=== PATIENT | female | born 1945 | race African-American/Black ===

== ENCOUNTER 2025-03-19 12:10 | Inpatient (IN) | payer MEDICARE ==
[~2025-03-19] VITALS: Ht 172.7 cm; Wt 78.6 kg
[~2025-03-19 12:10] MED LIST: AMLO5TAB5; ASPI-1406; ATEN50TA; CLOP-31; LISI1TAB13; SIMV-345
[2025-03-19 12:51] LABS: MEAN CORPUSCULAR HEMOGLOBIN 27.6 pg (28.0-32.0); MEAN CORPUSCULAR HGB CONC 32.5 g/dL (31.0-37.0); MEAN CORPUSCULAR VOLUME 85.1 fL (81.0-99.0); MEAN PLATELET VOLUME 8.8 fl (7.4-10.4); PLATELET 365 x1000/uL (130-400); RED BLOOD CELL COUNT 3.99 mill/uL (4.2-5.4); RED CELL DISTRIBUTION WIDTH 16.9 % (11.6-14.6)
[2025-03-19 12:59] LABS: CHLORIDE 111 mEq/L (98-107); POTASSIUM 3.4 mEq/L (3.5-5.1); SODIUM 146 mEq/L (136-145)
[2025-03-19 13:00] LABS: CALCIUM 10.3 mg/dL (8.7-10.4); CARBON DIOXIDE 17 mEq/L (21-32)
[2025-03-19 13:05] LABS: CREATININE 4.1 mg/dL (0.6-1.0); GLUCOSE 138 mg/dL (70-105); UREA NITROGEN BLOOD 69 mg/dL (9-23)
[2025-03-19 13:07] LABS: ALANINE AMINOTRANSFERASE 27 IU/L (10-49); ALBUMIN 5.1 g/dL (3.2-4.8); ASPARTATE AMINOTRANSFERASE 22 IU/L (<34); BILIRUBIN DIRECT 0.2 mg/dL (<=3.0); BILIRUBIN TOTAL 0.8 mg/dL (0.1-1.0); PROTEIN TOTAL 8.8 g/dL (6.0-8.3); TROPONIN I HIGH SENSITIVITY 23 ng/L (3.0-34)
[2025-03-19 13:15] LABS: DIFFERENTIAL COMMENT 1
[2025-03-19] MEDS: LACTATED RINGERS 1,000 ML IV SCH (13:20)
[2025-03-19 14:15] LABS: NUCLEATED RED BLOOD CELLS 7 /100 WBC
[2025-03-19 14:16] LABS: ANISOCYTOSIS 1+; PLATELET ESTIMATE NORMAL
[2025-03-19] MEDS ORDERED: ZOLPIDEM TARTRATE 5MG TABLET PO PRN (15:15)
[2025-03-19] MEDS ORDERED: HYDROCODONE/ACETAMINOPHEN 5/325MG TABLET PO PRN (15:15)
[2025-03-19] MEDS ORDERED: CLONIDINE 0.1MG TABLET PO PRN (15:15)
[2025-03-19] MEDS ORDERED: ACETAMINOPHEN 325MG TABLET PO PRN (15:15)
[2025-03-19 15:20] LABS: TROPONIN I HIGH SENSITIVITY 19 ng/L (3.0-34)
[2025-03-19] MEDS ORDERED: NALOXONE HCL 0.4MG/ML VIAL IV PRN (15:30)
[2025-03-19] MEDS: POTASSIUM CHLORIDE 20MEQ/PACKET PO NR (16:50)
[2025-03-19] MEDS: DEXT 5%/0.45% NACL 1000ML 1,000 ML IV SCH (16:50)
[2025-03-19] MEDS: ENOXAPARIN 30MG/0.3ML SYR SUBCUT SCH (16:51)
[2025-03-19] MEDS: ONDANSETRON HCL 4MG/2ML INJ IV PRN (16:54)
[2025-03-19 17:36] VITALS: BP 135/59; PULSE 70; RESP 16; TEMP 36.7; O2SAT 98
[2025-03-19] MEDS ORDERED: INFLUENZA VACCINE 05/PF 0.5 ML SYRINGE IM ONE (18:00)
[2025-03-19 20:00] VITALS: BP 126/61; PULSE 78; RESP 15; TEMP 36.8; O2SAT 94
[2025-03-19] MEDS: ATORVASTATIN CALCIUM 20MG TABLET PO SCH (21:14)
[2025-03-20] VITALS: BP 121/59; PULSE 77; RESP 15; TEMP 36.7; O2SAT 99
[2025-03-20 01:00] LABS: TROPONIN I HIGH SENSITIVITY 16 ng/L (3.0-34)
[2025-03-20 04:00] VITALS: BP 100/48; PULSE 65; RESP 24; TEMP 37; O2SAT 95
[2025-03-20 07:34] LABS: HEMATOCRIT. 31.4 % (36.0-48.0); HEMOGLOBIN. 10.3 g/dL (12.0-16.0); MEAN CORPUSCULAR HEMOGLOBIN 27.6 pg (28.0-32.0); MEAN CORPUSCULAR HGB CONC 32.9 g/dL (31.0-37.0); MEAN PLATELET VOLUME 8.6 fl (7.4-10.4); PLATELET 346 x1000/uL (130-400); RED BLOOD CELL COUNT 3.74 mill/uL (4.2-5.4); RED CELL DISTRIBUTION WIDTH 16.6 % (11.6-14.6); WHITE BLOOD COUNT 3.8 x1000/uL (4.5-11.0)
[2025-03-20 07:45] LABS: DIFFERENTIAL COMMENT 1
[2025-03-20 07:49] LABS: TROPONIN I HIGH SENSITIVITY 16 ng/L (3.0-34)
[2025-03-20 07:50] LABS: CARBON DIOXIDE 19 mEq/L (21-32); CHLORIDE 112 mEq/L (98-107); SODIUM 148 mEq/L (136-145)
[2025-03-20 07:51] LABS: CALCIUM 9.7 mg/dL (8.7-10.4)
[2025-03-20 07:56] LABS: CREATININE 3.6 mg/dL (0.6-1.0); GLUCOSE 136 mg/dL (70-105); UREA NITROGEN BLOOD 74 mg/dL (9-23)
[2025-03-20 07:58] LABS: PHOSPHORUS 5.4 mg/dL (2.5-4.9)
[2025-03-20 08:00] VITALS: BP 142/66; PULSE 82; RESP 16; TEMP 36.7; O2SAT 95
[2025-03-20 08:03] LABS: POTASSIUM 2.7 mEq/L (3.5-5.1)
[2025-03-20] MEDS ORDERED: POTASSIUM CHLORIDE 40 MEQ in DEXT 5% WATER 230 ML IV ONE (08:30)
[2025-03-20 08:54] LABS: NUCLEATED RED BLOOD CELLS 2 /100 WBC
[2025-03-20 08:55] LABS: ANISOCYTOSIS 1+; PLATELET ESTIMATE NORMAL
[2025-03-20] MEDS: PANTOPRAZOLE SODIUM 40 MG/VIAL IV SCH (09:11)
[2025-03-20] MEDS: ASPIRIN 81MG EC TABLET PO SCH (09:12)
[2025-03-20] MEDS: AMLODIPINE 10MG TABLET PO SCH (09:12)
[2025-03-20] MEDS: ATENOLOL 50 MG TABLET PO SCH (09:13)
[2025-03-20] MEDS: KCL 20MEQ/100ML PREMIX 100 ML IV NR (09:14)
[2025-03-20 12:00] VITALS: BP 118/56; PULSE 76; RESP 18; TEMP 36.7; O2SAT 100
[2025-03-20] MEDS: CLOPIDOGREL 75MG TABLET PO SCH (13:27)
[2025-03-20 16:00] VITALS: BP 127/55; PULSE 66; RESP 17; TEMP 36.8; O2SAT 98
[2025-03-20 17:08] LABS: POTASSIUM 3.4 mEq/L (3.5-5.1)
[2025-03-20 20:00] VITALS: BP 123/53; PULSE 60; RESP 15; TEMP 36.9; O2SAT 99
[2025-03-21] VITALS: BP 139/58; PULSE 67; RESP 15; TEMP 36.8; O2SAT 100
[2025-03-21 04:00] VITALS: BP 144/62; PULSE 60; RESP 14; TEMP 36.7; O2SAT 100
[2025-03-21 07:05] LABS: POTASSIUM 3.5 mEq/L (3.5-5.1)
[2025-03-21 07:07] LABS: CALCIUM 9.8 mg/dL (8.7-10.4)
[2025-03-21 07:16] LABS: BASOPHILS % 0.1 % (0.0-2.0); HEMATOCRIT. 33.9 % (36.0-48.0); HEMOGLOBIN. 10.9 g/dL (12.0-16.0); MEAN CORPUSCULAR HEMOGLOBIN 27.2 pg (28.0-32.0); MEAN CORPUSCULAR HGB CONC 32.1 g/dL (31.0-37.0); MEAN CORPUSCULAR VOLUME 84.6 fL (81.0-99.0); MEAN PLATELET VOLUME 8.8 fl (7.4-10.4); MONOCYTES % 11.6 % (2.0-8.0); NEUTROPHILS % 74.3 % (40.0-76.0); PLATELET 352 x1000/uL (130-400); RED BLOOD CELL COUNT 4.01 mill/uL (4.2-5.4); RED CELL DISTRIBUTION WIDTH 16.6 % (11.6-14.6); WHITE BLOOD COUNT 4.8 x1000/uL (4.5-11.0)
[2025-03-21 07:48] LABS: CREATININE 2.5 mg/dL (0.6-1.0)
[2025-03-21 08:00] VITALS: BP 135/59; PULSE 69; RESP 18; TEMP 36.6; O2SAT 97
[2025-03-21] MEDS: POTASSIUM CHLORIDE 20MEQ TABLET SR PO NR (08:43)
[2025-03-21] MEDS: DEXT 5% WATER 500 ML IV ONE (10:00)
[2025-03-21 12:00] VITALS: BP 126/55; PULSE 61; RESP 20; TEMP 36.6; O2SAT 100
[2025-03-21 16:00] VITALS: BP 134/47; PULSE 63; RESP 18; TEMP 36.8; O2SAT 94
[2025-03-21 20:00] VITALS: BP 101/50; PULSE 65; RESP 12; TEMP 36.7; O2SAT 95
[2025-03-22] VITALS: BP 119/42; PULSE 58; RESP 16; TEMP 36.9; O2SAT 100
[2025-03-22 04:00] VITALS: BP 129/53; PULSE 64; RESP 16; TEMP 36.8; O2SAT 98
[2025-03-22 07:27] LABS: EOSINOPHILS % 0.1 % (0.0-5.0); HEMATOCRIT. 35.1 % (36.0-48.0); HEMOGLOBIN. 11.3 g/dL (12.0-16.0); LYMPHOCYTES % 14.9 % (20.0-50.0); MEAN CORPUSCULAR HEMOGLOBIN 27.8 pg (28.0-32.0); MEAN CORPUSCULAR HGB CONC 32.2 g/dL (31.0-37.0); MEAN CORPUSCULAR VOLUME 86.3 fL (81.0-99.0); MEAN PLATELET VOLUME 9.1 fl (7.4-10.4); MONOCYTES % 11.3 % (2.0-8.0); NEUTROPHILS % 73.7 % (40.0-76.0); PLATELET 311 x1000/uL (130-400); RED BLOOD CELL COUNT 4.07 mill/uL (4.2-5.4); RED CELL DISTRIBUTION WIDTH 17.4 % (11.6-14.6); WHITE BLOOD COUNT 5.4 x1000/uL (4.5-11.0)
[2025-03-22 07:32] LABS: POTASSIUM 3.3 mEq/L (3.5-5.1)
[2025-03-22 07:33] LABS: CALCIUM 9.6 mg/dL (8.7-10.4)
[2025-03-22 08:00] VITALS: BP 93/78; PULSE 63; RESP 14; TEMP 36.6; O2SAT 95
[2025-03-22 12:00] VITALS: BP 128/44; PULSE 60; RESP 11; TEMP 36.2; O2SAT 100
[2025-03-22] MEDS: POTASSIUM CHLORIDE 20MEQ/PACKET PO NR (14:22)
[2025-03-22] MEDS: METOCLOPRAMIDE HCL 10MG/2ML VIAL IV SCH (14:23)
[2025-03-22 16:00] VITALS: BP 135/58; PULSE 67; RESP 14; TEMP 36.4; O2SAT 100
[2025-03-22 20:00] VITALS: BP 127/49; PULSE 60; RESP 13; TEMP 36.3; O2SAT 100
[2025-03-23] VITALS: BP 135/52; PULSE 59; RESP 14; TEMP 35.4; O2SAT 100
[2025-03-23 04:00] VITALS: BP 139/49; PULSE 76; RESP 15; TEMP 36.4; O2SAT 100
[2025-03-23 07:35] LABS: POTASSIUM 3.9 mEq/L (3.5-5.1)
[2025-03-23 07:36] LABS: CALCIUM 9.8 mg/dL (8.7-10.4)
[2025-03-23 07:40] LABS: CREATININE 1.9 mg/dL (0.6-1.0)
[2025-03-23 07:46] LABS: BASOPHILS % 0.2 % (0.0-2.0); HEMATOCRIT. 35.2 % (36.0-48.0); HEMOGLOBIN. 11.3 g/dL (12.0-16.0); LYMPHOCYTES % 12.2 % (20.0-50.0); MEAN CORPUSCULAR HEMOGLOBIN 27.7 pg (28.0-32.0); MEAN CORPUSCULAR HGB CONC 31.9 g/dL (31.0-37.0); MEAN CORPUSCULAR VOLUME 86.7 fL (81.0-99.0); MEAN PLATELET VOLUME 8.8 fl (7.4-10.4); MONOCYTES % 9.4 % (2.0-8.0); NEUTROPHILS % 78.2 % (40.0-76.0); PLATELET 329 x1000/uL (130-400); RED BLOOD CELL COUNT 4.07 mill/uL (4.2-5.4); RED CELL DISTRIBUTION WIDTH 17.9 % (11.6-14.6); WHITE BLOOD COUNT 7.4 x1000/uL (4.5-11.0)
[2025-03-23 08:00] VITALS: BP 123/46; PULSE 63; RESP 12; TEMP 35.8; O2SAT 100
[2025-03-23] MEDS: DEXTROSE 5% WATER 1,000 ML IV SCH (08:00)
[2025-03-23] MEDS: SODIUM BICARBONATE 650MG TABLET PO SCH (10:10)
[2025-03-23 11:42] LABS: CLARITY URINE CLOUDY (CLEAR); COLOR URINE YELLOW (YELLOW); GLUCOSE URINE NEGATIVE (NEGATIVE); KETONES URINE NEGATIVE (NEGATIVE); LEUKOCYTE ESTERASE URINE 2+ (NEGATIVE); NITRITE URINE NEGATIVE (NEGATIVE); OCCULT BLOOD URINE TRACE (NEGATIVE); PH URINE 5.5 (4.5-8.0); PROTEIN URINE 2+ (NEGATIVE); UROBILINOGEN URINE 0.2 E.U./dL (0.2-1.0)
[2025-03-23 12:00] VITALS: BP 136/46; PULSE 71; RESP 13; TEMP 35.9; O2SAT 100
[2025-03-23 12:20] LABS: BACTERIA URINE 2+; RBC URINE 0-2 /hpf (0-2); SQUAMOUS EPITHELIAL CELL URINE 1+ /lpf (RARE/1+); WBC URINE 15-25 /hpf (0-2); YEAST URINE NONE SEEN
[2025-03-23 16:00] VITALS: BP 138/54; PULSE 71; RESP 14; TEMP 36; O2SAT 100
[2025-03-23] MEDS ORDERED: AMOX1TAB16 MT (16:04)
[2025-03-23 17:55] LABS: POTASSIUM 3.6 mEq/L (3.5-5.1)
[2025-03-23 17:56] LABS: CALCIUM 9.6 mg/dL (8.7-10.4)
[2025-03-23 18:01] LABS: CREATININE 1.7 mg/dL (0.6-1.0)
[2025-03-23 20:00] VITALS: BP 117/44; PULSE 80; RESP 16; TEMP 36.1; O2SAT 99
[2025-03-24] VITALS: BP 120/53; PULSE 82; RESP 14; TEMP 36.3; O2SAT 97
[2025-03-24 04:00] VITALS: BP 121/48; PULSE 90; RESP 16; TEMP 35.8; O2SAT 97
[2025-03-24 05:48] LABS: BASOPHILS % 0.1 % (0.0-2.0); HEMATOCRIT. 33.3 % (36.0-48.0); HEMOGLOBIN. 10.7 g/dL (12.0-16.0); MEAN CORPUSCULAR HGB CONC 32.3 g/dL (31.0-37.0); MEAN CORPUSCULAR VOLUME 83.8 fL (81.0-99.0); MEAN PLATELET VOLUME 8.5 fl (7.4-10.4); MONOCYTES % 7.6 % (2.0-8.0); NEUTROPHILS % 79.3 % (40.0-76.0); PLATELET 315 x1000/uL (130-400); RED BLOOD CELL COUNT 3.97 mill/uL (4.2-5.4); RED CELL DISTRIBUTION WIDTH 17.1 % (11.6-14.6); WHITE BLOOD COUNT 6.8 x1000/uL (4.5-11.0)
[2025-03-24 05:54] LABS: POTASSIUM 3.1 mEq/L (3.5-5.1)
[2025-03-24 05:56] LABS: CALCIUM 9.6 mg/dL (8.7-10.4)
[2025-03-24 06:00] LABS: CREATININE 1.8 mg/dL (0.6-1.0)
[2025-03-24 08:00] VITALS: BP 141/66; PULSE 95; RESP 19; TEMP 36.3; O2SAT 98
[2025-03-24] MEDS: POTASSIUM CHLORIDE 20MEQ/PACKET PO NR (08:45)
[2025-03-24 12:00] VITALS: BP 130/90; PULSE 129; RESP 17; TEMP 36.4; O2SAT 98
[2025-03-24] MEDS: KCL 20MEQ/100ML PREMIX 100 ML IV SCH (14:46)
[2025-03-24] MEDS: LOPERAMIDE HCL 2MG CAPSULE PO PRN (15:42)
[2025-03-24] MEDS: DIGOXIN 500MCG/2ML AMP IV NR (15:43)
[2025-03-24 16:00] VITALS: BP 143/60; PULSE 90; RESP 16; TEMP 36.6; O2SAT 98
[2025-03-24 20:00] VITALS: BP 105/40; PULSE 75; RESP 16; TEMP 36.3; O2SAT 99
[2025-03-25] VITALS: BP 121/39; PULSE 68; RESP 13; TEMP 36.2; O2SAT 100
[2025-03-25 04:00] VITALS: BP 105/49; PULSE 73; RESP 13; TEMP 36.2; O2SAT 100
[2025-03-25 08:41] VITALS: BP 117/55; PULSE 79; RESP 16; TEMP 36.7; O2SAT 9
[2025-03-25 12:00] VITALS: BP 95/67; PULSE 64; RESP 27; TEMP 37; O2SAT 99
[2025-03-25 13:32] LABS: POTASSIUM 3.2 mEq/L (3.5-5.1)
[2025-03-25 13:38] LABS: CREATININE 1.6 mg/dL (0.6-1.0)
[2025-03-25] MEDS: CEFTRIAXONE 1GM/50ML 50 ML IV SCH (15:11)
[2025-03-25 16:00] VITALS: BP 115/53; PULSE 61; RESP 18; TEMP 36.7; O2SAT 98
[2025-03-25 16:14] VITALS: BP 139/51; PULSE 61; TEMP 98; O2SAT 98
== END 2025-03-25 18:13 | disposition home or self-care (01) | DRG 682 ==
LOC: ER 12:10 → EDBEDREQTM 15:07 → EDBEDREQ 15:07 → 3WST 16:58
PROVIDERS: ADMIT Internal Medicine; ATTEND Internal Medicine
DX: N17.9 Acute kidney failure, unspecified (principal); G92.8 Other toxic encephalopathy; I21.A1 Myocardial infarction type 2; N39.0 Urinary tract infection, site not specified; E87.0 Hyperosmolality and hypernatremia; E87.20 Acidosis, unspecified; E86.0 Dehydration; E86.1 Hypovolemia; C50.919 Malignant neoplasm of unspecified site of unspecified female breast; I10 Essential (primary) hypertension; D64.9 Anemia, unspecified; E87.6 Hypokalemia; I25.10 Atherosclerotic heart disease of native coronary artery without angina pectoris; R62.7 Adult failure to thrive; D72.821 Monocytosis (symptomatic); G62.9 Polyneuropathy, unspecified; R19.7 Diarrhea, unspecified; T45.1X5A Adverse effect of antineoplastic and immunosuppressive drugs, initial encounter; I25.2 Old myocardial infarction; Z68.24 Body mass index [BMI] 24.0-24.9, adult; Z79.02 Long term (current) use of antithrombotics/antiplatelets; Z79.82 Long term (current) use of aspirin; Z95.5 Presence of coronary angioplasty implant and graft; Y92.89 Other specified places as the place of occurrence of the external cause
CPT/HCPCS: 36415; 71045; 74018; 76770; 80048; 80076; 81003; 83735; 84100; 84132; 84484; 85025; 87077; 87186; 93005; 93970; 97161; 99291; A4606; J0696; J1160; J1650; J2405; J2470; J2765; J3480; J7070